=== PATIENT | female | born 1990 | race Caucasian/White ===

== ENCOUNTER 2016-10-21 16:12 | Emergency (ER) | payer BC, OTHER ==
[~2016-10-21] VITALS: Ht 160 cm; Wt 45.8 kg
[~2016-10-21 16:12] MED LIST: BUSPAR10 MG PO; CIPRO500 MG PO; LEXAPRO10 MG PO; Motrin PO; NORCO 5/3251 TABLET PO; ZOFRAN ODT8 MG PO
[2016-10-21 20:07] LABS: MCH 28.4 PG (29.0-34.0); MCHC 32.2 G/DL (30.0-36.0); MCV 88.3 FL (83-99); MEAN PLAT.VOLUME 8.8 uM^3 (9.5-12.4); PLATELET COUNT 271 K/uL (156-360); RBC DIS.WIDTH-CV 12.4 % (11.8-14.6); RED BLOOD COUNT 5.21 M/uL (3.80-5.20); WHITE BLOOD COUNT 6.4 K/uL (4.1-10.2)
[2016-10-21 20:15] LABS: CHLORIDE 108 mEq/L (99-109); SODIUM 142 mEq/L (136-147)
[2016-10-21 20:17] LABS: GLUCOSE 89 mg/dL (70-99)
[2016-10-21 20:18] LABS: ADD MIUA? YES; ANION GAP 8 MEQ/L (2-14); BILIRUBIN NEGATIVE; BLOOD NEGATIVE; COLOR YELLOW ((YELLOW)); GLUCOSE (STRIP) NEGATIVE; KETONES NEGATIVE; LEUKOCYTES NEGATIVE; NITRITE NEGATIVE; PROTEIN (STRIP) 30; SPECIFIC GRAVITY 1.018 (1.000-1.030); UROBILINOGEN 0.2 MG/DL (0.2-1.0)
[2016-10-21 20:19] LABS: TOTAL BILIRUBIN 0.9 mg/dL (0.0-1.0)
[2016-10-21 20:20] LABS: SERUM ETHYL ALCOHOL < 10 mg/dL
[2016-10-21 20:21] LABS: ALKALINE PHOSPHATASE 49 IU/L (3-129); GFR ESTIMATE (CALCULATED) > 59 mL/min/
[2016-10-21 20:22] LABS: UREA NITROGEN (BUN) 9 mg/dL (9-23)
[2016-10-21 20:27] LABS: AMPHETAMINE NEGATIVE (500 ng/mL); BARBITURATES NEGATIVE (200 ng/mL); BENZODIAZEPINES NEGATIVE (150 ng/mL); COCAINE NEGATIVE (150 ng/mL); INTERNAL CONTROLS VALID? YES; METHADONE NEGATIVE (200 ng/mL); METHAMPHETAMINE NEGATIVE (500 ng/mL); OPIATES (MORPHINE) NEGATIVE (100 ng/mL); OXYCODONE NEGATIVE (100 ng/mL); PHENCYCLIDINE NEGATIVE (25 ng/mL); PROPOXYPHENE NEGATIVE (300 ng/mL); THC CANNABINOIDS PRESUMPTIVE POSITIVE (50 ng/mL); TRICYCLIC ANTIDEPRESSANTS NEGATIVE (300 ng/mL)
[2016-10-21 20:28] LABS: ADD MEDTOX COMMENT Y
[2016-10-21 20:31] LABS: QUANTITATIVE HCG < 4.0 MIU/ML
[2016-10-21 20:49] LABS: BACTERIA 1+ /HPF; CASTS NONE SEEN /LPF; CRYSTALS NONE SEEN; EPITHELIAL CELLS 1+ /HPF; MUCUS 3+ /LPF; RED BLOOD CELLS 0-5 /HPF (0-5); WHITE BLOOD CELLS 0-5 /HPF (0-5)
[2016-10-21 21:16] LABS: MEDTOX DRUG SCREEN COMMENT POSITIVE
[2016-10-21 23:06] VITALS: BP 114/70
== END 2016-10-21 23:07 | disposition home or self-care (01) ==
LOC: EME 16:12
PROVIDERS: Emergency Medicine
DX: F33.3 Major depressive disorder, recurrent, severe with psychotic symptoms (principal); F12.10 Cannabis abuse, uncomplicated; F17.200 Nicotine dependence, unspecified, uncomplicated; Z88.0 Allergy status to penicillin
CPT/HCPCS: 80053; 81003; 84702; 84999; 85027; 90839; 99281; 99283; G0480